=== PATIENT | male | born 1965 | race African-American/Black ===

== ENCOUNTER 2019-01-31 10:38 | Emergency (ER) | payer BC ==
[2019-01-31 10:50] VITALS: TEMP 98.5; BMI 38.9
[2019-01-31] MEDS ORDERED: ALBUTEROL SO4 2.5/IPRATROPIUM 0.5 INH SOL 3 ML VIAL.NEB. NEB ONE ×2 (10:56→11:51)
[2019-01-31] MEDS ORDERED: methylPREDNISolone NA SUCC 125 MG/2 ML VIAL ONE (11:04)
[2019-01-31] MEDS ORDERED: DEXAMETHASONE SOD PHOSPHATE 10 MG/1 ML VIAL IVPUSH ONE (11:05)
[2019-01-31] MEDS ORDERED: SODIUM CHLORIDE 1,000 ML IV STA (11:11)
[2019-01-31] MEDS: ALBUTEROL SO4 2.5/IPRATROPIUM 0.5 INH SOL 3 ML VIAL.NEB. NEB SCH ×4 (11:13→12:27)
[2019-01-31] MEDS ORDERED: ONDANSETRON 4 MG/2 ML VIAL ONE (11:14)
[2019-01-31] MEDS ORDERED: DEXAMETHASONE SOD PHOSPHATE 10 MG/1 ML VIAL ONE (11:14)
--- NOTE | 2019-01-31 11:15 | PDOC ---
History of Present Illness - General Chief Complaint: Nausea/Vomiting Stated Complaint: Nausea/Vomiting Time Seen by Provider: 01/31/19 10:46 - History of Present Illness Initial Comments: Richie Franks is a 53yo man with a PMH of obesity, childhood asthma (no longer requiring treatment) who presents from urgent care with hypoxia and SOB. 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 He went to urgent care yesterday and was started on azithromycin. He then had several episodes of vomiting overnight and went back to urgent care. He was noted to be hypoxic and was sent to the ED via ambulance. Per EMS, he was given 4mg zofran for nausea/ vomiting but there is no report of nebulizers or steroids. Past History - Past Medical History Allergies/Adverse Reactions: Allergies Allergy/AdvReac Type Severity Reaction Status Date / Time No Known Allergies Allergy Unverified 01/31/19 10:50 Home Medications: Ambulatory Orders Albuterol Sulfate Inhaler - [Ventolin HFA Inhaler -] 2 inh PO Q4H PRN #1 inh Albuterol Sulfate Inhaler - [Ventolin Hfa Inhaler -] 1 - 2 inh PO QID PRN Budesonide [Pulmicort Flexhaler] 90 mcg IH DAILY #1 aer.[email or web address] 01/31/19 Inhaler, Assist Devices [Space Chamber Plus] 1 each UTDICT #1 spacer predniSONE [Deltasone -] 40 mg PO UTDICT #10 tablet 01/31/19 Asthma: Yes COPD: No - Psycho Social/Smoking Cessation Hx Smoking History: Never smoked Have you smoked in the past 12 months: No Hx Alcohol Use: No Drug/Substance Use Hx: No Review of Systems - Review of Systems Comments:: General: No fevers, no chills, no weight or appetite change, no malaise HEENT: No changes in vision, no changes in hearing, no congestion, no sore throat CV: No chest pain, no palpitations, no LE edema Pulm: See HPI GI: No nausea, + vomiting, no change in bowel habits, no melena : No frequency, no urgency, no dysuria Musc: No back pain, no joint swelling, no recent injury Skin: No rash, no lesions, no erythema Endo: No excessive thirst, no heat/cold intolerance Heme: No unusual bruising or bleeding, no swollen glands Neuro: No syncope, no numbness/tingling, no focal weakness Vasc: No claudication Psych: No recent change in mood, no SI or HI *Physical Exam - Vital Signs Last Vital Signs Temp Pulse Resp BP Pulse Ox 98.5 F 108 H 18 137/87 89 L 01/31/19 10:46 01/31/19 10:46 01/31/19 10:46 01/31/19 10:46 01/31/19 10:46 - Physical Exam Comments: General: Comfortable but in mild respiratory distress HEENT: PERRL, EOMI, MMM, voice normal, normal neck ROM Cards: RRR, no murmur appreciated Pulm: Breathing comfortably, hypoxic, no wheezing but poor air movement Abd: Soft, nontender, nondistended Ext: Atraumatic. No LE edema. ROM intact. WWP Skin: Normal color, no rashes or lesions Neuro: A&Ox3, CN grossly intact, normal speech, motor/sensory grossly intact and symmetric Psych: Mood appropriate to situation ED Treatment Course - LABORATORY CBC & Chemistry Diagram: 01/31/19 11:15 01/31/19 11:15 Medical Decision Making - Medical Decision Making 01/31/19 11:10 Richie Franks is a 53yo man with a PMH of obesity, childhood asthma (no longer requiring treatment) who presents from urgent care with hypoxia after 2 days of cough/SOB. He was seen at urgent care yesterday as well, started on azithromycin, and had multiple episodes of vomiting overnight. - Suspect reactive airway secondary to viral infection, possibly influenza, given multiple sick contacts at work - Duoneb q15min, 10mg decadron - Flu swab - IV in case of additional medications. Will send CBC, CMP for evaluation - Re-evaluate following nebs 01/31/19 11:32 - Called by [facility] at [facility] urgent care. Reports that Mr Franks was hypoxic to 82% on arrival. They report improvement to 96% following nebs. - Trop, EKG, CXR added 01/31/19 14:07 - Pt feeling significantly improved. - Sats 90-95% on RA with scattered expiratory wheezing on exam - Lengthy discussion held with pt and his , who is now at bedside. Pt would prefer to be discharged home. As sats are up to 95%, will discharge home with oral and inhaled steroids and an asthma plan. Pt will follow up with his PMD tomorrow. Discussed with Dr Devon Duran PGY2 Discharge - Discharge Information Problems reviewed: Yes Clinical Impression/Diagnosis: Asthma exacerbation Qualifiers: Asthma severity: moderate Asthma persistence: unspecified Qualified Code(s): J45.901 - Unspecified asthma with (acute) exacerbation Condition: Fair Disposition: HOME - Admission No - Additional Discharge Information Prescriptions: Albuterol Sulfate Inhaler - [Ventolin HFA Inhaler -] 2 inh PO Q4H PRN #1 inh PRN Reason: Wheezing Budesonide [Pulmicort Flexhaler] 90 mcg IH DAILY #1 aer.pow.ba Inhaler, Assist Devices [Space Chamber Plus] 1 each MC UTDICT #1 spacer predniSONE [Deltasone -] 40 mg PO UTDICT #10 tablet - Follow up/Referral Referrals: Dillon Poe MD [Primary Care Provider] - - Patient Discharge Instructions Patient Printed Discharge Instructions: DI for Asthma -- Adult Additional Instructions: Discharge Instructions: You were seen in the emergency department for vomiting and difficulty breathing. You were found to have low oxygen levels. You were diagnosed with asthma flare-up and were give several medications to treat the asthma. Home Care: - You have been prescribed an albuterol inhaler. You should use this every 4 hours today. Increase this to every 6 hours tomorrow if you are able to. - You have also been prescribed another inhaled medication called Pulmicort. This should be used daily. - You have been prescribed prednisone, a steroid tablet. This should be taken daily for 5 days starting tomorrow. Make an appointment to follow up with your regular doctor within the next 1-2 days for follow up. Seek immediate care for worsening symptoms, difficulty breathing, labored breathing, wheezing, chest pain, or any other medical emergency. - Post Discharge Activity
[2019-01-31 11:25] LABS: BASO % 0.2 % (0-2.0); EOS % 1.1 % (0-4.5); HEMATOCRIT 48.8 % (35.4-49); HEMOGLOBIN 15.9 GM/dL (11.7-16.9); LYMPH % 10.3 % (8-40); MCH 27.3 pg (25.7-33.7); MCHC 32.6 g/dl (32.0-35.9); MEAN CELL VOLUME 83.6 fl (80-96); MEAN PLT VOLUME 9.3 fl (7.5-11.1); MONO % 8.3 % (3.8-10.2); NEUT % 80.1 % (42.8-82.8); PLATELET COUNT 205 K/MM3 (134-434); RBC 5.85 M/mm3 (4.00-5.60); RDW 14.5 % (11.9-15.9); WHITE BLOOD COUNT 7.4 K/mm3 (4.0-10.0)
[2019-01-31] MEDS ORDERED: ONDANSETRON 4 MG/2 ML VIAL IVPB ONE (11:31)
[2019-01-31 12:21] LABS: ALK PHOS 108 U/L (45-117); ANION GAP 9 MMOL/L (8-16); BILIRUBIN,TOTAL 0.7 mg/dL (0.2-1); BLOOD UREA NITROGEN 11.8 mg/dL (7-18); CALCIUM 9.4 mg/dL (8.5-10.1); CHLORIDE 105 mmol/L (98-107); CO2 27 mmol/L (21-32); GLUCOSE,RANDOM 121 mg/dL (74-106); SGOT/AST 25 U/L (15-37); SGPT/ALT 25 U/L (13-61); SODIUM 141 mmol/L (136-145); TOT PROT 8.2 g/dl (6.4-8.2)
--- NOTE | 2019-01-31 13:00 | PDOC ---
Documentation entered by Brea Rollins SCRIBE, acting as scribe for Martin Osorio MD. Martin Osorio MD: This documentation has been prepared by the Ria thompson Adrianna, SCRIBE, under my direction and personally reviewed by me in its entirety. I confirm that the documentation accurately reflects all work, treatment, procedures, and medical decision making performed by me. Attending Attestation - Resident Resident Name: ReneeScarlett - ED Attending Attestation I have performed the following: I have examined & evaluated the patient, The case was reviewed & discussed with the resident, I agree w/resident's findings & plan, Exceptions are as noted - HPI HPI: The patient is a 53 year old male, with a significant PMH of obesity and childhood asthma (not currently on any treatments/medications), who presents to the ED BIBEMS from Urgent Care or evaluation of shortness of breath and hypoxia for 2 days. 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 He went to Urgent Care yesterday, was told he had bronchitis and was placed on Azithromycin. Patient endorses multiple episodes of nausea and NBNB vomit last night, and went back to Urgent Care this morning. Patient was found to be hypoxic at Urgent Care and was sent to the ED for further evaluation. He was given Zofran en route by EMS for his continual nausea and vomit. Patient notes this happens once a year around the "change of weather," but this feels worse than prior episodes. He denies any history of admission for these complaints. Allergies: NKA, NKDA Surgical History: None reported Social History: Denies EtOH, tobacco, or illicit drug use PCP: Dr. Dillon Poe - Physicial Exam PE: Vitals: Triage Vital signs reviewed General Appearance: +Diaphoretic. no acute distress, well nourished well developed, Cardiac: +Tachycardic. Regular rhythm, no murmurs, no rubs, no gallops, Lungs: +Tachypneic. +Wheezing at the bilateral bases Abdomen: +Obese, Soft, nondistended, nontender to palpation Extremities: Full range of motion to all extremities, no cyanosis, clubbing, or edema Skin: Warm and dry, no rashes or lesions, no petechiae Neuro: AOX3; Cranial Nerves 2-12 grossly c intact, Strength intact to all extremities, Sensation intact to all extremities Psych: normal mood, normal affect - Medical Decision Making 53 year old male, with history of obesity and childhood asthma, presents with SOB and hypoxia. Plan: CBC, CMP, trop, EKG, chest X-Ray, duo nebs, decadron, flu swab, reassess. 01/31/19 14:09 Only only the best of Reevaluation patient feels much better wheezing has improved oxygen saturation 93% on room air will discharge patient with inhaled corticosteroid patient has rescue albuterol at home as well as 5-day course of prednisone He will follow-up tomorrow with his primary care provider. We offered the patient observation overnight patient is adamant he feels better and wants to return home and aneesh stooling l follow up with his doctor. is at the bedside. The return to the ED for any severe worsening symptoms or for any concerns Heart Score/ECG Review - ECG Impressions Comment:: EKG performed at 12:06:42 demonstrates rate of 103bpm, sinus tachycardia. Additional findings include: possible left atrial enlargement, nonspecific T wave abnormality. ED Treatment Course - LABORATORY CBC & Chemistry Diagram: 01/31/19 11:15 01/31/19 11:15 - ADDITIONAL ORDERS Additional order review: Laboratory Results 01/31/19 11:15 Sodium 141 Potassium 4.0 Chloride 105 Carbon Dioxide 27 Anion Gap 9 BUN 11.8 Creatinine 1.0 Est GFR (CKD-EPI)AfAm 99.85 Est GFR (CKD-EPI)NonAf 86.15 Random Glucose 121 H Calcium 9.4 Total Bilirubin 0.7 AST 25 ALT 25 Alkaline Phosphatase 108 Creatine Kinase 441 H Troponin I < 0.02 Total Protein 8.2 Albumin 4.0 01/31/19 11:15 RBC 5.85 H MCV 83.6 MCHC 32.6 RDW 14.5 MPV 9.3 Neutrophils % 80.1 Lymphocytes % 10.3 Monocytes % 8.3 Eosinophils % 1.1 Basophils % 0.2 - RADIOLOGY Radiograph Interpretation: EXAM#: TYPE/EXAM: RESULT: [id number] RAD/CHEST X-RAY PORTABLE* HISTORY PROVIDED: Rule out abnormalities. IMPRESSION: Normal chest. Reported By: Rafa Tse MD 01/31/19 12:35 - Medications Given in the ED: ED Medications Discontinued Medications Generic Name Dose Route Start Last Admin Trade Name Larissa PRN Reason Stop Dose Admin Albuterol/Ipratropium 1 amp 01/31/19 11:15 01/31/19 12:27 Duoneb - NEB 01/31/19 12:01 1 amp Q15M GERDA Administration Dexamethasone Sodium Phosphate 10 mg 01/31/19 11:05 01/31/19 11:23 Decadron Injection - IVPUSH 01/31/19 11:06 10 mg ONCE ONE Administration Ondansetron HCl 4 mg 01/31/19 11:31 01/31/19 11:45 Zofran Injection IVPB 01/31/19 11:32 4 mg ONCE ONE Administration
[2019-01-31 13:32] VITALS: BP 159/89; PULSE 118
--- NOTE | 2019-02-01 10:00 | EKG ---
Test Reason : Blood Pressure : / mmHG Vent. Rate : 103 BPM Atrial Rate : 103 BPM P-R Int : 152 ms QRS Dur : 086 ms QT Int : 324 ms P-R-T Axes : 066 058 044 degrees QTc Int : 424 ms SINUS TACHYCARDIA POSSIBLE LEFT ATRIAL ENLARGEMENT NONSPECIFIC T WAVE ABNORMALITY ABNORMAL ECG NO PREVIOUS ECGS AVAILABLE Confirmed by JASMYNE HWANG, KACEY ([id number]) on 02/01/2019 9:59:54 AM Referred By: Confirmed By:KACEY MEDLEY MD
== END 2019-01-31 15:00 | disposition home or self-care (01) ==
LOC: JER 10:38
PROC: 3E0F7GC Introduction of Other Therapeutic Substance into Respiratory Tract, Via Natural or Artificial Opening (ICD-10-PCS; principal; 2019-01-31)
PROC: 3E0337Z Introduction of Electrolytic and Water Balance Substance into Peripheral Vein, Percutaneous Approach (ICD-10-PCS; 2019-01-31)
PROC: 3E033GC Introduction of Other Therapeutic Substance into Peripheral Vein, Percutaneous Approach (ICD-10-PCS; 2019-01-31)
PROC: 3E0333Z Introduction of Anti-inflammatory into Peripheral Vein, Percutaneous Approach (ICD-10-PCS; 2019-01-31)
DX: J45.901 Unspecified asthma with (acute) exacerbation (principal)
CPT/HCPCS: 36415; 71045-TC-FY; 80053; 82550; 82553; 84484; 85025; 87804; 93005; 93010; 99284-25; J1100; J7030